=== PATIENT | female | born 1950 | race Caucasian/White ===

== ENCOUNTER 2017-02-21 17:29 | Emergency (ER) | payer BC ==
[2017-02-21 17:38] VITALS: BP 125/72
[2017-02-21] MEDS ORDERED: NS 0.9% 1000 ML* 1,000 ML IV ONE (17:57)
--- NOTE | 2017-02-21 18:19 | RAD ---
HISTORY: Fever COMPARISONS: None VIEWS: 2: Frontal dual-energy and lateral views of the chest. FINDINGS: CARDIOMEDIASTINAL SILHOUETTE: The cardiomediastinal silhouette is normal. TAMMIE: The tammie are normal. PLEURA: The costophrenic angles are sharp. No pleural abnormalities are noted. LUNG PARENCHYMA: The lungs are clear. ABDOMEN: The upper abdomen is clear. There is no subphrenic gas. BONES AND SOFT TISSUES: No bone or soft tissue abnormalities are noted. OTHER: None. IMPRESSION: NO ACTIVE CARDIOPULMONARY DISEASE.
[2017-02-21 18:21] LABS: Hematocrit 41 % (35-47); Hemoglobin 13.6 g/dl (12.0-16.0); Mean Corpuscular HGB Conc 33 g/dl (31-36); Mean Corpuscular Hemoglobin 32 pg (27-31); Mean Corpuscular Volume 96 fL (80-97); Mean Platelet Volume 9 um3 (7.4-10.4); Red Blood Count 4.29 10^6/ul (4.0-5.4); Red Cell Distribution Width 13 % (10.5-15); White Blood Count 6.9 10^3/ul (3.5-10.8)
[2017-02-21 18:32] LABS: Urine Bacteria 2+ (Absent); Urine Bilirubin Negative (Negative); Urine Glucose Negative (Negative); Urine Nitrite Negative (Negative)
[2017-02-21 18:36] LABS: Albumin 4.2 g/dL (3.2-5.2); BUN/Creatinine Ratio 16.3 (8-20); C Reactive Protein 29.51 mg/L (< 5.00); Calcium 9.4 mg/dL (8.6-10.3); EGFR African American 92.9 (>60); EGFR Non-African American 72.2 (>60); Globulin 3.1 g/dL (2-4); Potassium 3.7 mmol/L (3.5-5.0); Total Bilirubin 0.3 mg/dL (0.2-1.0); Total Protein 7.3 g/dL (6.4-8.9)
[2017-02-21 18:38] LABS: Troponin I 0.01 ng/mL (<0.04)
[2017-02-21] MEDS ORDERED: Acetaminophen TAB* 325 MG PO ONE (18:52)
[2017-02-21] MEDS ORDERED: Ketorolac INJ* 30 MG/ML 1 ML VIAL IV PUSH ONE (18:58)
[2017-02-21] MEDS ORDERED: cefTRIAXone VIAL(*) 1,000 MG in NS 0.9% 50 ML* 50 ML IVPB ONE (18:59)
[2017-02-21 19:29] LABS: Erythrocyte Sed Rate 10 mm/Hr (0-30)
--- NOTE | 2017-02-22 04:40 | ED ---
Lorne Reese Rebecca, scribed for Jose Scherer MD on 02/21/17 at 2049 . Progress - Progress Note Progress Note: Pt was signed out from Dr. Marin. Re-Evaluation - Re-Evaluation First Eval Re-Evaluation Time: 20:43 Change: Improved Comment: Reviewed labs with the pt. Ask her how she was feeling and whether she felt well enough to home to which she responded she was. Answered any questions the pt had. Course/Dx - Course Course Of Treatment: After reevaluation during which the pt deemed she felt well enough to go home, pt will be D/C to home with Dx of cellulitis, a follow up with her PCP and a prescription for keflex. - Diagnoses Provider Diagnoses: Cellulitis The documentation as recorded by the Lorne yepez Rebecca accurately reflects the service I personally performed and the decisions made by me, Jose Scherer MD.
--- NOTE | 2017-02-22 18:17 | ED ---
Brendan Reese Aidan, scribed for Kade Marin MD on 02/21/17 at 1812 . 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 Her fever is currently 102. Before arriving at the ED, she was given Zofran and Tylenol. Associated symptoms include feeling achy since last night, loose BMs, and fatigue. She denies any cough, dysuria, increased urinary frequency, or sore throat. - History of Current Complaint Chief Complaint: EDFever Time Seen by Provider: 02/21/17 17:47 Hx Obtained From: Patient, Family/[employer] - Onset/Duration: Started Days Ago - present since last night, fever was first noticed today MEDICAL OFFICE COORDINATOR, Still Present - current fever of 102 Timing: Constant Temperature: 102 F - At ED Initial Severity: Moderate Current Severity: Moderate Pain Intensity: 0 Pain Scale Used: 0-10 Numeric Aggravating Factors: Unknown Alleviating Factors: Other: - unknown Associated Signs and Symptoms: Other: - diffuse body aches, loose BMs, fatigue - Allergy/Home Medications Allergies/Adverse Reactions: Allergies Allergy/AdvReac Type Severity Reaction Status Date / Time Bacitracin [From Neosporin] Allergy Rash Verified 02/21/17 17:39 Neomycin [From Neosporin] Allergy Rash Verified 02/21/17 17:39 Polymyxin B [From Neosporin] Allergy Rash Verified 02/21/17 17:39 PMH/Surg Hx/FS Hx/Imm Hx - Cancer History Hx Chemotherapy: No Hx Radiation Therapy: No Infectious Disease History: No Infectious Disease History: Denies: Traveled Outside the [place] in Last 30 Days - Family History Known Family History: Positive: Hypertension - Social History Occupation: Employed Full-time Lives: With Family Alcohol Use: Rare Substance Use Type: Reports: None Smoking Status (MU): Never Smoked Tobacco Review of Systems Positive: Fever, Fatigue. Negative: Chills, Skin Diaphoresis Eyes: Negative ENT: Negative Cardiovascular: Negative Respiratory: Negative Positive: Other - loose BMs. Negative: Abdominal Pain, Vomiting, Diarrhea, Nausea Genitourinary: Negative Positive: Myalgia - diffuse body aches. Negative: Arthralgia, Decreased ROM, Edema Skin: Negative Neurological: Negative Psychological: Normal All Other Systems Reviewed And Are Negative: Yes Physical Exam - Summary Physical Exam Summary: VITAL SIGNS: Reviewed. GENERAL: Patient is a well-developed and nourished (MALE OR FEMALE) who is lying comfortable in the stretcher. Patient is not in any acute respiratory distress. HEAD AND FACE: No signs of trauma. No ecchymosis, hematomas or skull depressions. No sinus tenderness. EYES: PERRLA, EOMI x 2, No injected conjunctiva, no nystagmus. EARS: Hearing grossly intact. Ear canals and tympanic membranes are within normal limits. MOUTH: Oropharynx within normal limits. NECK: Supple, trachea is midline, no adenopathy, no JVD, no carotid bruit, no c- spine tenderness, neck with full ROM. CHEST: Symmetric, no tenderness at palpation LUNGS: Clear to auscultation bilaterally. No wheezing or crackles. CVS: Regular rate and rhythm, S1 and S2 present, no murmurs or gallops appreciated. ABDOMEN: Soft, non-tender. No signs of distention. No rebound no guarding, and no masses palpated. Bowel sounds are normal. EXTREMITIES: FROM in all major joints, no edema, no cyanosis or clubbing. NEURO: Alert and oriented x 3. No acute neurological deficits. Speech is normal and follows commands. SKIN: Dry and warm. Triage Information Reviewed: Yes Vital Signs On Initial Exam: Initial Vitals Temp Pulse Resp BP Pulse Ox 102 F 96 17 125/72 100 02/21/17 17:33 02/21/17 17:33 02/21/17 17:33 02/21/17 17:33 02/21/17 17:33 Vital Signs Reviewed: Yes - Roman Coma Scale Coma Scale Total: 15 Diagnostics - Vital Signs Vital Signs Temp Pulse Resp BP Pulse Ox 02/21/17 17:37 102 F 96 17 125/72 100 02/21/17 17:33 102 F 96 17 125/72 100 - Laboratory Lab Results: Lab Results 02/21/17 02/21/17 02/21/17 Range/Units 18:00 18:03 18:03 WBC 6.9 (3.5-10.8) 10^3/ul RBC 4.29 (4.0-5.4) 10^6/ul Hgb 13.6 (12.0-16.0) g/dl Hct 41 (35-47) % MCV 96 (80-97) fL MCH 32 H (27-31) pg MCHC 33 (31-36) g/dl RDW 13 (10.5-15) % Plt Count 176 (150-450) 10^3/ul MPV 9 (7.4-10.4) um3 Neut % (Auto) 81.8 (38-83) % Lymph % (Auto) 6.7 L (25-47) % Emery % (Auto) 10.9 H (1-9) % Eos % (Auto) 0 (0-6) % Baso % (Auto) 0.6 (0-2) % Absolute Neuts (auto) 5.6 (1.5-7.7) 10^3/ul Absolute Lymphs (auto) 0.5 L (1.0-4.8) 10^3/ul Absolute Monos (auto) 0.8 (0-0.8) 10^3/ul Absolute Eos (auto) 0 (0-0.6) 10^3/ul Absolute Basos (auto) 0 (0-0.2) 10^3/ul Absolute Nucleated RBC 0 10^3/ul Nucleated RBC % 0 ESR 10 (0-30) mm/Hr Fibrinogen 409 H (110.8-404.3) mg/dL Sodium (133-145) mmol/L Potassium (3.5-5.0) mmol/L Chloride (101-111) mmol/L Carbon Dioxide (22-32) mmol/L Anion Gap (2-11) mmol/L BUN (6-24) mg/dL Creatinine (0.51-0.95) mg/dL Est GFR ( Amer) (>60) Est GFR (Non-Af Amer) (>60) BUN/Creatinine Ratio (8-20) Glucose (70-100) mg/dL Lactic Acid (0.5-2.0) mmol/L Calcium (8.6-10.3) mg/dL Total Bilirubin (0.2-1.0) mg/dL AST (13-39) U/L ALT (7-52) U/L Alkaline Phosphatase (34-104) U/L Troponin I (<0.04) ng/mL C-Reactive Protein (< 5.00) mg/L Total Protein (6.4-8.9) g/dL Albumin (3.2-5.2) g/dL Globulin (2-4) g/dL Albumin/Globulin Ratio (1-3) Urine Color Yellow Urine Appearance Clear Urine pH 5.0 (5-9) Ur Specific [place] 1.018 (1.010-1.030) Urine Protein Negative (Negative) Urine Ketones Trace H (Negative) Urine Blood Negative (Negative) Urine Nitrate Negative (Negative) Urine Bilirubin Negative (Negative) Urine Urobilinogen Negative (Negative) Ur Leukocyte Esterase Trace H (Negative) Urine WBC (Auto) Trace(0-5/hpf) (Absent) Urine RBC (Auto) 1+(3-5/hpf) H (Absent) Urine Bacteria 2+ H (Absent) Urine Glucose Negative (Negative) Urine Ascorbic Acid * H (Negative) 02/21/17 02/21/17 Range/Units 18:03 18:03 WBC (3.5-10.8) 10^3/ul RBC (4.0-5.4) 10^6/ul Hgb (12.0-16.0) g/dl Hct (35-47) % MCV (80-97) fL MCH (27-31) pg MCHC (31-36) g/dl RDW (10.5-15) % Plt Count (150-450) 10^3/ul MPV (7.4-10.4) um3 Neut % (Auto) (38-83) % Lymph % (Auto) (25-47) % Emery % (Auto) (1-9) % Eos % (Auto) (0-6) % Baso % (Auto) (0-2) % Absolute Neuts (auto) (1.5-7.7) 10^3/ul Absolute Lymphs (auto) (1.0-4.8) 10^3/ul Absolute Monos (auto) (0-0.8) 10^3/ul Absolute Eos (auto) (0-0.6) 10^3/ul Absolute Basos (auto) (0-0.2) 10^3/ul Absolute Nucleated RBC 10^3/ul Nucleated RBC % ESR (0-30) mm/Hr Fibrinogen (110.8-404.3) mg/dL Sodium 134 (133-145) mmol/L Potassium 3.7 (3.5-5.0) mmol/L Chloride 103 (101-111) mmol/L Carbon Dioxide 25 (22-32) mmol/L Anion Gap 6 (2-11) mmol/L BUN 13 (6-24) mg/dL Creatinine 0.80 (0.51-0.95) mg/dL Est GFR ( Amer) 92.9 (>60) Est GFR (Non-Af Amer) 72.2 (>60) BUN/Creatinine Ratio 16.3 (8-20) Glucose 146 H (70-100) mg/dL Lactic Acid 0.6 (0.5-2.0) mmol/L Calcium 9.4 (8.6-10.3) mg/dL Total Bilirubin 0.30 (0.2-1.0) mg/dL AST 33 (13-39) U/L ALT 12 (7-52) U/L Alkaline Phosphatase 90 (34-104) U/L Troponin I 0.01 (<0.04) ng/mL C-Reactive Protein 29.51 H (< 5.00) mg/L Total Protein 7.3 (6.4-8.9) g/dL Albumin 4.2 (3.2-5.2) g/dL Globulin 3.1 (2-4) g/dL Albumin/Globulin Ratio 1.4 (1-3) Urine Color Urine Appearance Urine pH (5-9) Ur Specific [place] (1.010-1.030) Urine Protein (Negative) Urine Ketones (Negative) Urine Blood (Negative) Urine Nitrate (Negative) Urine Bilirubin (Negative) Urine Urobilinogen (Negative) Ur Leukocyte Esterase (Negative) Urine WBC (Auto) (Absent) Urine RBC (Auto) (Absent) Urine Bacteria (Absent) Urine Glucose (Negative) Urine Ascorbic Acid (Negative) Result Diagrams: 02/21/17 18:03 02/21/17 18:03 Lab Statement: Any lab studies that have been ordered have been reviewed, and results considered in the medical decision making process. - Radiology CHEST X-RAY Xray Interpretation: No Acute Changes - IMPRESSION: NO ACTIVE CARDIOPULMONARY DISEASE Radiology Interpretation Completed By: Radiologist Course/Dx - Course Course Of Treatment: The patient will be signed out to Dr. Scherer. Assessment/Plan: In the ED course an IV access was obtained. Patient was placed in a classroom monitor. Patient was started with IV fluids and toradol for body aches and fever. Labs within normal limits except for CRP 29.5, fibrinogen 409. UA negative. CXR impression: No acute pathology. I believe her symptoms are coming from her cellulitis in her back. There is abscess formation. I gave Ceftriaxone in the ED. In the ED course she is getting her antibiotics and she will be signed out to Dr. Prado for further assessment and disposition. - Febrile Illness Differential Diagnoses: Cellulitis - Diagnoses Provider Diagnoses: Cellulitis Discharge - Discharge Plan Condition: Improved Disposition: HOME Prescriptions: Cephalexin CAP* [Keflex 500 CAP*] 500 mg PO TID #30 cap Patient Education Materials: Cellulitis (ED) Referrals: Jannet Stewart MD [Primary Care Provider] - 3 Days The documentation as recorded by the Brendan yepez Aidan accurately reflects the service I personally performed and the decisions made by me, Kade Marin MD.
--- NOTE | 2017-02-24 09:58 | PN ---
Progress Note - Progress Note Note: Final urine culture results obtained and showed growth of Klebsiella Pneumoniae only 25-50,000. No need for treatment or further action at this time. If symptoms begin or worsen bacteria is suceptible to cipro and bactrim.
== END 2017-02-21 20:52 | disposition home or self-care (01) ==
LOC: ED 17:29
DX: L03.90 Cellulitis, unspecified (principal); R50.9 Fever, unspecified; R53.83 Other fatigue
CPT/HCPCS: 36415; 71020; 80053; 81003; 81015; 83605; 84484; 85025; 85384; 85652; 86140; 86618; 87040; 87077; 87086; 87186; 99283; J0696; J1885

== ENCOUNTER 2021-11-21 17:49 | Observation (INO) ==
[2021-11-21 18:17] LABS: Hematocrit 40 % (35-47); Hemoglobin 13.2 g/dL (12.0-16.0); Mean Corpuscular HGB Conc 33 g/dL (31-36); Mean Corpuscular Hemoglobin 33 pg (27-31); Mean Corpuscular Volume 100 fL (80-97); Mean Platelet Volume 10.6 fL (7.4-10.4); Platelet Count 186 10^3/uL (150-450); Red Blood Count 4.03 10^6 /uL (3.70-4.87); Red Cell Distribution Width 14 % (10-15); White Blood Count 5.8 10^3/uL (3.5-10.8)
[2021-11-21 18:23] LABS: ABS Eosinophils 0.2 10^3/ul (0-0.6); ABS Lymphocytes 1.4 10^3/ul (1.0-4.8); ABS Monocytes 0.8 10^3/ul (0-0.8); ABS Neutrophils 3.3 10^3/ul (1.5-7.7); Eosinophil % 4.3 %; Lymphocyte % 24.8 %; Nucleated Red Blood Cells % 0.1
[2021-11-21 18:25] LABS: INR 1.12 (0.86-1.15)
[2021-11-21 19:04] LABS: Albumin 4.2 g/dL (3.2-5.2); Albumin/Globulin Ratio 1.8 (1-3); Calcium 9.5 mg/dL (8.6-10.3); Globulin 2.4 g/dL (2-4); Potassium 3.2 mmol/L (3.5-5.0); Total Bilirubin 0.4 mg/dL (0.2-1.0); Total Protein 6.6 g/dL (6.4-8.9); eGFR CKD-EPI 86.1 (>60)
[2021-11-21 20:05] LABS: High Sensitivity Troponin 1 Hr 6 pg/mL (<15)
[2021-11-21] MEDS ORDERED: hydrALAZINE 20 mg/ml 1 ML Vial IV IV SLOW PU ONE (22:17)
[2021-11-22] MEDS ORDERED: Potassium Chlor 20 meq TAB.ER PO ONE (00:02)
[2021-11-22 07:21] LABS: HDL Cholesterol 51.1 mg/dL
[2021-11-22 11:10] LABS: Albumin 3.9 g/dL (3.2-5.2); Albumin/Globulin Ratio 1.8 (1-3); Globulin 2.2 g/dL (2-4); Potassium 3.5 mmol/L (3.5-5.0); Total Bilirubin 0.5 mg/dL (0.2-1.0); Total Protein 6.1 g/dL (6.4-8.9); eGFR CKD-EPI 95.2 (>60)
[2021-11-22 11:37] VITALS: BP 138/72
[2021-11-22 11:51] LABS: ABS Eosinophils 0.2 10^3/ul (0-0.6); ABS Lymphocytes 1.2 10^3/ul (1.0-4.8); ABS Monocytes 0.6 10^3/ul (0-0.8); ABS Neutrophils 4.3 10^3/ul (1.5-7.7); Eosinophil % 2.6 %; Hematocrit 40 % (35-47); Hemoglobin 13.3 g/dL (12.0-16.0); Lymphocyte % 19.2 %; Mean Corpuscular HGB Conc 33 g/dL (31-36); Mean Corpuscular Hemoglobin 33 pg (27-31); Mean Corpuscular Volume 100 fL (80-97); Mean Platelet Volume 11.5 fL (7.4-10.4); Platelet Count 183 10^3/uL (150-450); Red Blood Count 4.04 10^6 /uL (3.70-4.87); Red Cell Distribution Width 14 % (10-15); White Blood Count 6.3 10^3/uL (3.5-10.8)
== END 2021-11-22 13:00 | disposition home or self-care (01) ==
LOC: ED 17:49 → EDHOLD 17:49 → SUATTDRO 11-22 00:02 → MED 11-22 03:57
PROVIDERS: ADMIT Internal Medicine; ATTEND Internal Medicine